=== PATIENT | female | born 1985 | race Caucasian/White ===

== ENCOUNTER → 2017-03-01 | Outpatient (CLI) | payer MEDICAID | LOC: HPND 08:36 | DX: O24.414 Gestational diabetes mellitus in pregnancy, insulin controlled (principal); O99.282 Endocrine, nutritional and metabolic diseases complicating pregnancy, second trimester | CPT/HCPCS: 76811 ==

== ENCOUNTER → 2017-03-22 | Outpatient (CLI) | payer MEDICAID | LOC: HPND 07:51 | DX: O24.112 Pre-existing type 2 diabetes mellitus, in pregnancy, second trimester (principal); O44.02 Complete placenta previa NOS or without hemorrhage, second trimester; Z3A.23 23 weeks gestation of pregnancy | CPT/HCPCS: 76816; 76817 ==

== ENCOUNTER → 2017-04-12 | Outpatient (CLI) | payer MEDICAID | LOC: HPND 07:44 | DX: O24.112 Pre-existing type 2 diabetes mellitus, in pregnancy, second trimester (principal); O44.02 Complete placenta previa NOS or without hemorrhage, second trimester | CPT/HCPCS: 76816; 76825; 76827; 93325 ==

== ENCOUNTER → 2017-05-11 | Outpatient (CLI) | payer MEDICAID | LOC: HPND 08:10 | DX: O24.112 Pre-existing type 2 diabetes mellitus, in pregnancy, second trimester (principal); O44.02 Complete placenta previa NOS or without hemorrhage, second trimester; Z79.4 Long term (current) use of insulin | CPT/HCPCS: 76816 ==